=== PATIENT | male | born 1945 | race Caucasian/White ===

== ENCOUNTER 2017-10-07 07:01 | Day surgery (SDC) | payer MEDICARE ==
[~2017-10-07] VITALS: Ht 177.8 cm; Wt 105.4 kg
[~2017-10-07 07:01] MED LIST: ABAC300; ACET325 PO; ASPI325 PO; BACL10 PO; BISA5EC PO; CHOL10002; CYAN1000 SL; Ester-C 500 MG1 EACH PO; Flomax0.4 MG PO; HYDACE5 PO; HYDCHL12.5 PO; LOSA50 PO; METF500 PO; NAPR500; OMEP20ER PO; ONDA4ODT MM; OXYC5; PROBIOTIC1 EAC1 PO; STOOL SOFTENER50 MG PO; Saw Palmetto160 MG
[2017-10-07] MEDS ORDERED: AMLO5 PO (07:24)
== END 2017-10-07 08:57 | disposition home or self-care (01) ==
LOC: ORSCSDS 07:01
PROVIDERS: Ophthalmology
PROC: 08RJ3JZ Replacement of Right Lens with Synthetic Substitute, Percutaneous Approach (ICD-10-PCS; principal; 2017-10-07 08:30)
DX: H25.11 Age-related nuclear cataract, right eye (principal); H21.81 Floppy iris syndrome; E11.9 Type 2 diabetes mellitus without complications; Z87.891 Personal history of nicotine dependence; Z79.82 Long term (current) use of aspirin; Z79.899 Other long term (current) drug therapy
CPT/HCPCS: 82947; J2250; J3301; J7040; V2632

== ENCOUNTER 2017-10-28 08:01 | Day surgery (SDC) | payer MEDICARE ==
[~2017-10-28] VITALS: Ht 177.8 cm; Wt 105.3 kg
[~2017-10-28 08:01] MED LIST changes: +AMLO5 PO
== END 2017-10-28 10:00 | disposition home or self-care (01) ==
LOC: ORSCSDS 08:01
PROVIDERS: Ophthalmology
PROC: 08RK3JZ Replacement of Left Lens with Synthetic Substitute, Percutaneous Approach (ICD-10-PCS; principal; 2017-10-28 09:30)
DX: H25.12 Age-related nuclear cataract, left eye (principal); E11.9 Type 2 diabetes mellitus without complications; I10 Essential (primary) hypertension; N40.0 Benign prostatic hyperplasia without lower urinary tract symptoms; Z79.82 Long term (current) use of aspirin; Z79.899 Other long term (current) drug therapy; Z79.84 Long term (current) use of oral hypoglycemic drugs; Z87.891 Personal history of nicotine dependence
CPT/HCPCS: 82947; J2250; J3010; J3301; V2632